=== PATIENT | female | born 1970 | race Two or more races ===

== ENCOUNTER 2022-10-24 11:33 | Emergency (ER) | payer BC ==
[~2022-10-24] VITALS: Ht 157.5 cm; Wt 67.1 kg
[~2022-10-24 11:33] MED LIST: LEVO125T PO
--- NOTE | 2022-10-24 11:35 | NUR ---
AMEENA RA100 from work with c/o back pain, [facility] [place] Pt states she has a history of back pain, she started having pain about two days ago and it got worse while she was at work today. No reported injury, fall or trauma.
--- NOTE | 2022-10-24 11:45 | NUR ---
DR Mccabe at the bedside for MSE.
--- NOTE | 2022-10-24 12:00 | NUR ---
Pt registered by error by ER admitting, see [id number].
== END 2022-10-24 12:05 | disposition left against medical advice (07) ==
LOC: ER 11:33
DX: Z53.21 Procedure and treatment not carried out due to patient leaving prior to being seen by health care provider (principal)